=== PATIENT | female | born 1950 | race Caucasian/White ===

== ENCOUNTER 2017-05-06 11:40 | Emergency (ER) | payer MEDICARE, OTHER ==
[~2017-05-06] VITALS: Ht 160 cm; Wt 90.7 kg
--- NOTE | ~2017-05-06 | CR170 ---
[facility]. [facility] A Service of [facility] RADIOLOGY TEXT RESULTS PATIENT: KISHORE MENJIVAR LOCATION: SED : 48 UNIT #: [id number] AGE: [address]: Nacho Durand MD SEX: F ORDER DR: [id number] [place] [id number] E MR#: [id number] Acc #: [id number] NAME: KISHORE MENJIVAR. : 1950 SEX: F STUDY DATE/TIME: 05/06/2017 12:04 UNIT: SED ROOM: STUDY DESCRIPTION: CR Knee 2 Views Rt Attending Physician: Nacho Durand M.D. Ordering Physician: Nacho Durand M.D. Primary Care Physician: Angelito Zavala M.D. MEDICAL IMAGING REPORT This report is preliminary unless electronic signature is present. EXAM 2 views right knee INDICATION Pain along the anterior medial side of the right knee present for 2 weeks. Patient reports she stood up and felt a pop. FINDINGS No acute fracture or subluxation of the right knee is identified. I don't see a suprapatellar effusion. There is degenerative change noted within the right knee most pronounced within the patellofemoral compartment. No aggressive osseous abnormalities are seen. IMPRESSION Degenerative changes as noted above. Dictated by... Jaymie Mullins M.D. THIS IS AN ELECTRONICALLY VERIFIED REPORT Jaymie Mullins M.D. at 05/07/2017 5:04 PM AFF/df TD: 05/07/2017 12:41 JOB #: [id number] MEDICAL IMAGING REPORT Page 1 of 1
[~2017-05-06 11:40] MED LIST: ADVAIR 2501 DISK W/D PO; ALBUTEROL17 GM INH; ALPRAZOLAM PO; ASPIRIN81 M1 PO; CLARINEX5 MG PO; FLONASE16 GM; K-DUR20 ME1 PO; LEVAQUIN PO; LIPITOR PO; LOZOL PO; PREVACID PO; ROBAXIN500 MG PO; SENNA LAXATIVE1 TAB PO; VOLTAREN75 MG PO; [UNRECOGNIZED DRUG - OTHER]
== END 2017-05-06 13:23 | disposition home or self-care (01) ==
LOC: SED 11:40
DX: M17.11 Unilateral primary osteoarthritis, right knee (principal); M47.9 Spondylosis, unspecified; I10 Essential (primary) hypertension; E78.5 Hyperlipidemia, unspecified; Z90.710 Acquired absence of both cervix and uterus; Z79.899 Other long term (current) drug therapy
CPT/HCPCS: 73560; 96372; 99283; J1885